=== PATIENT | female | born 1965 | race Hispanic/Latino ===

== ENCOUNTER 2016-09-24 10:22 | Observation (INO) | payer SELFPAY ==
[~2016-09-24] VITALS: Ht 147.3 cm; Wt 71.0 kg
[~2016-09-24 10:22] MED LIST: AMOXICILLIN500 MG PO; CIPRO500 MG PO; LORTAB 5 OR; LORTAB 5/3255 MG PO; LORTAB 7.57.5 MG PO; METFORMIN500 M1 PO; METFORMIN500 MG PO; NAPROSYN500 MG OR; NO; NO HOME MEDS; PAIN MED; TRAMADOL HCL50 MG PO; TRIMOX500 MG PO; ULTRAM50 M1 PO; ZOFRAN ODT4 MG PO; ZOFRAN4 MG OR; antibiotic; pain medication
[2016-09-24 11:14] LABS: HEMATOCRIT 40.3 % (37.0-47.0); HEMOGLOBIN 13.9 g/dl (12.0-16.0); IMMATURE GRANULOCYTES 0.4 % (0.0-1.0); MEAN CELL VOLUME 88.6 fL CALC (80.0-100.0); MEAN CORPUSCULAR HGB 30.5 pG CALC (26.0-32.0); MEAN CORPUSCULAR HGB CONC 34.5 g/L CALC (32.0-36.0); NEUT# 2.91 thou/uL (2.00-7.15); RED BLOOD COUNT 4.55 mill/uL (4.20-5.60); RED CELL DISTRI WIDTH 12.2 % (11.5-15.5)
[2016-09-24 11:24] LABS: ALBUMIN 4.3 g/dL (3.2-5.0); ALKALINE PHOSPHATASE 55 u/l (38-126); ANION GAP 17 (6-22 (CALC)); BILIRUBIN, TOTAL 0.4 mg/dL (0.0-1.4); BUN 15 mg/dL (7-17); BUN/CREATININE RATIO 34 (12-20 (CALC)); CALCIUM 9.2 mg/dL (8.4-10.2); CARBON DIOXIDE 21 mmol/l (22-30); CHLORIDE 105 mmol/l (95-108); CREATININE 0.5 mg/dL (0.5-1.0); GFR > 60 ML/MIN (>=60 (CALC)); GFR FOR AFR.AMER. > 60 ML/MIN (>=60 (CALC)); GLUCOSE 253 mg/dL (65-105); POTASSIUM 3.8 mmol/l (3.5-5.1); SGOT/AST 34 u/l (14-36); SGPT/ALT 57 u/l (9-52); SODIUM 140 mmol/l (137-146); TOTAL PROTEIN 7.7 g/dL (6.3-8.2)
[2016-09-24 11:36] LABS: MYOGLOBIN 22 ng/mL (0 - 62)
[2016-09-24 14:40] LABS: URINE BILIRUBIN - DIPSTICK NEGATIVE (NEGATIVE); URINE BLOOD DIPSTICK NEGATIVE (NEGATIVE); URINE CLARITY CLEAR; URINE COLOR YELLOW; URINE GLUCOSE - DIPSTICK >=1000 mg/dL (NEGATIVE); URINE KETONE TRACE mg/dL (NEGATIVE); URINE LEUK ESTERASE NEGATIVE (NEGATIVE); URINE NITRITE - DIPSTICK NEGATIVE (Negative); URINE PH 5.5 (4.5-8.0); URINE PROTEIN - DIPSTICK NEGATIVE (NEG-TRACE); URINE SPECIFIC GRAVITY 1.015; URINE UROBILINOGEN - DIPSTICK 0.2 E.U./dL (0.2)
[2016-09-24 17:24] VITALS: BP 121/77
[2016-09-24 19:25] VITALS: BP 118/60
[2016-09-25 00:05] VITALS: BP 107/74
[2016-09-25 05:00] VITALS: BP 121/82
[2016-09-25 06:51] LABS: HEMATOCRIT 37.8 % (37.0-47.0); MEAN CELL VOLUME 89.2 fL CALC (80.0-100.0); MEAN CORPUSCULAR HGB 30.7 pG CALC (26.0-32.0); MEAN CORPUSCULAR HGB CONC 34.4 g/L CALC (32.0-36.0); RED BLOOD COUNT 4.24 mill/uL (4.20-5.60); RED CELL DISTRI WIDTH 12.1 % (11.5-15.5)
[2016-09-25 07:18] LABS: ANION GAP 13 (6-22 (CALC)); BUN 11 mg/dL (7-17); BUN/CREATININE RATIO 26 (12-20 (CALC)); CALCIUM 8.5 mg/dL (8.4-10.2); CARBON DIOXIDE 22 mmol/l (22-30); CHLORIDE 109 mmol/l (95-108); CHOLESTEROL HDL RATIO 5.9 (<4.4 (CALC)); CREATININE 0.4 mg/dL (0.5-1.0); GFR > 60 ML/MIN (>=60 (CALC)); GFR FOR AFR.AMER. > 60 ML/MIN (>=60 (CALC)); GLUCOSE 129 mg/dL (65-105); HDL CHOLESTEROL 33 mg/dL (>=40); POTASSIUM 4.2 mmol/l (3.5-5.1); SODIUM 140 mmol/l (137-146); TOTAL CHOLESTEROL 197 mg/dl (0-199)
[2016-09-25 07:24] LABS: VLDL CHOLESTROL 118 mg/dl (2-49 (CALC))
[2016-09-25 07:27] LABS: TOTAL TRIGLYCERIDES 591 mg/dl (30-149)
[2016-09-25 08:24] VITALS: BP 111/70
[2016-09-25 12:15] VITALS: BP 115/73
[2016-09-25] MEDS ORDERED: ATORVASTATIN CA10 MG PO (12:40)
[2016-09-25] MEDS ORDERED: EFFEXOR XR75 MG PO (12:41)
[2016-09-25] MEDS ORDERED: ADLT ASA LOW81 MG PO (12:41)
== END 2016-09-25 13:25 | disposition home or self-care (01) | DRG 313 ==
LOC: ED 10:22 → ED-I 13:54 → ED 14:38 → MS2 14:39
PROVIDERS: Emergency Medicine; ADMIT Internal Medicine; ATTEND Internal Medicine
DX: R07.2 Precordial pain (principal); E11.9 Type 2 diabetes mellitus without complications; R06.02 Shortness of breath; N95.1 Menopausal and female climacteric states; Z79.84 Long term (current) use of oral hypoglycemic drugs
CPT/HCPCS: G0378

== ENCOUNTER 2018-01-13 02:48 | Emergency (ER) | payer SELFPAY ==
[~2018-01-13] VITALS: Ht 147.3 cm; Wt 76.0 kg
[~2018-01-13 02:48] MED LIST changes: +ADLT ASA LOW81 MG PO; +ATORVASTATIN CA10 MG PO; +EFFEXOR XR75 MG PO
[2018-01-13 03:45] LABS: HEMATOCRIT 37.2 % (37.0-47.0); HEMOGLOBIN 12.9 g/dl (12.0-16.0); IMMATURE GRANULOCYTES 0.2 % (0.0-5.0); MEAN CELL VOLUME 90.3 fL CALC (80.0-100.0); MEAN CORPUSCULAR HGB 31.3 pG CALC (26.0-32.0); MEAN CORPUSCULAR HGB CONC 34.7 g/L CALC (32.0-36.0); NEUT# 3.74 thou/uL (2.00-7.15); RED BLOOD COUNT 4.12 mill/uL (4.20-5.60)
[2018-01-13 03:45] LABS: URINE BILIRUBIN - DIPSTICK NEGATIVE (NEGATIVE); URINE BLOOD DIPSTICK NEGATIVE (NEGATIVE); URINE COLOR YELLOW; URINE GLUCOSE - DIPSTICK 500 mg/dL (NEGATIVE); URINE KETONE 15 mg/dL (NEGATIVE); URINE LEUK ESTERASE NEGATIVE (NEGATIVE); URINE NITRITE - DIPSTICK NEGATIVE (Negative); URINE PH 5.5 (4.5-8.0); URINE PROTEIN - DIPSTICK 30 mg/dL (NEG-TRACE); URINE SPECIFIC GRAVITY >=1.030; URINE UROBILINOGEN - DIPSTICK 0.2 E.U./dL (0.2)
[2018-01-13 03:46] VITALS: BP 134/79
[2018-01-13 03:46] LABS: URINE CLARITY SL CLOUDY
[2018-01-13 03:52] LABS: URINE RBC 0-2 RBC/hpf (0-5); URINE SQUAMOUS EPITHELIAL CELL MANY EPI/hpf (0-FEW)
[2018-01-13 03:55] LABS: ANION GAP 15 (6-22 (CALC)); BUN 16 mg/dL (7-17); BUN/CREATININE RATIO 32 (12-20 (CALC)); CARBON DIOXIDE 25 mmol/l (22-30); CHLORIDE 102 mmol/l (95-108); CREATININE 0.5 mg/dL (0.5-1.0); GFR FOR AFR.AMER. > 60 ML/MIN (>=60 (CALC)); POTASSIUM 3.9 mmol/l (3.5-5.1); SODIUM 138 mmol/l (137-146)
[2018-01-13 03:57] LABS: GFR > 60 ML/MIN (>=60 (CALC))
[2018-01-13] MEDS ORDERED: ROBITUSSIN AC10 ML PO (04:05)
== END 2018-01-13 06:10 | disposition home or self-care (01) | DRG 866 ==
LOC: ED 02:48
PROVIDERS: Family Medicine
DX: B34.9 Viral infection, unspecified (principal); R05 Cough; R50.9 Fever, unspecified; M79.10 Myalgia, unspecified site; E11.65 Type 2 diabetes mellitus with hyperglycemia; Z79.84 Long term (current) use of oral hypoglycemic drugs; R09.81 Nasal congestion

== ENCOUNTER 2018-07-09 15:06 | Emergency (ER) | payer SELFPAY ==
[~2018-07-09] VITALS: Ht 147.3 cm; Wt 70.0 kg
[~2018-07-09 15:06] MED LIST changes: +ROBITUSSIN AC10 ML PO
[2018-07-09] MEDS ORDERED: NOVOLIN 70/30 SC (15:27)
[2018-07-09 17:14] VITALS: BP 113/65
== END 2018-07-09 17:14 | disposition home or self-care (01) | DRG 556 ==
LOC: ED 15:06
DX: M25.572 Pain in left ankle and joints of left foot (principal); X58.XXXA Exposure to other specified factors, initial encounter; Y92.009 Unspecified place in unspecified non-institutional (private) residence as the place of occurrence of the external cause

== ENCOUNTER 2019-08-20 11:20 | Emergency (ER) | payer OTHER ==
[~2019-08-20] VITALS: Ht 147.3 cm; Wt 75.0 kg
[~2019-08-20 11:20] MED LIST changes: +NOVOLIN 70/30 SC
[2019-08-20 11:52] LABS: URINE BILIRUBIN - DIPSTICK NEGATIVE (NEGATIVE); URINE BLOOD DIPSTICK NEGATIVE (NEGATIVE); URINE COLOR YELLOW; URINE GLUCOSE - DIPSTICK NEGATIVE (NEGATIVE); URINE KETONE NEGATIVE (NEGATIVE); URINE LEUK ESTERASE NEGATIVE (NEGATIVE); URINE NITRITE - DIPSTICK NEGATIVE (Negative); URINE PROTEIN - DIPSTICK 30 mg/dL (NEG-TRACE); URINE SPECIFIC GRAVITY >=1.030; URINE UROBILINOGEN - DIPSTICK 0.2 E.U./dL (0.2)
[2019-08-20 12:02] LABS: URINE SQUAMOUS EPITHELIAL CELL FEW EPI/hpf (0-FEW)
[2019-08-20] MEDS ORDERED: ROSUVASTATIN CA40 MG PO (13:18)
[2019-08-20 13:35] VITALS: BP 118/70
== END 2019-08-20 13:35 | disposition home or self-care (01) | DRG 605 ==
LOC: ED 11:20
PROVIDERS: Student in an Organized Health Care Education/Training Program
DX: S90.32XA Contusion of left foot, initial encounter (principal); M25.562 Pain in left knee; E11.9 Type 2 diabetes mellitus without complications; V86.59XA Driver of other special all-terrain or other off-road motor vehicle injured in nontraffic accident, initial encounter; Y93.89 Activity, other specified; Y92.89 Other specified places as the place of occurrence of the external cause; Y99.0 Civilian activity done for income or pay; Z79.4 Long term (current) use of insulin

== ENCOUNTER 2020-08-04 13:02 | Emergency (ER) | payer SELFPAY ==
[~2020-08-04] VITALS: Ht 147.3 cm; Wt 74.0 kg
[~2020-08-04 13:02] MED LIST changes: +ROSUVASTATIN CA40 MG PO
[2020-08-04] MEDS ORDERED: NOVOLIN 70/30 SC ×2 (13:21)
[2020-08-04 15:47] VITALS: BP 102/70
== END 2020-08-04 15:52 | disposition home or self-care (01) | DRG 605 ==
LOC: ED 13:02
DX: S90.32XA Contusion of left foot, initial encounter (principal); E11.9 Type 2 diabetes mellitus without complications; W18.41XA Slipping, tripping and stumbling without falling due to stepping on object, initial encounter; Y92.009 Unspecified place in unspecified non-institutional (private) residence as the place of occurrence of the external cause; Z79.4 Long term (current) use of insulin

== ENCOUNTER 2021-06-24 15:32 | Emergency (ER) | payer SELFPAY ==
[~2021-06-24] VITALS: Ht 147.3 cm; Wt 70.0 kg
[2021-06-24 16:34] LABS: URINE BILIRUBIN - DIPSTICK NEGATIVE (NEGATIVE); URINE BLOOD DIPSTICK NEGATIVE (NEGATIVE); URINE COLOR YELLOW; URINE GLUCOSE - DIPSTICK 250 mg/dL (NEGATIVE); URINE KETONE 15 mg/dL (NEGATIVE); URINE LEUK ESTERASE NEGATIVE (NEGATIVE); URINE PH 5.5 (4.5-8.0); URINE PROTEIN - DIPSTICK 30 mg/dL (NEG-TRACE); URINE SPECIFIC GRAVITY >=1.030; URINE UROBILINOGEN - DIPSTICK 0.2 E.U./dL (0.2)
[2021-06-24 16:34] LABS: HEMATOCRIT 35.5 % (37.0-47.0); IMMATURE GRANULOCYTES 0.2 % (0.0-5.0); MEAN CELL VOLUME 91.7 fL CALC (80.0-100.0); MEAN CORPUSCULAR HGB CONC 33.8 g/dL CAL (32.0-36.0); NEUT# 2.74 thou/uL (2.00-7.15); RED BLOOD COUNT 3.87 mill/uL (4.20-5.60); RED CELL DISTRI WIDTH 12.4 % (11.5-15.5)
[2021-06-24 16:40] LABS: URINE NITRITE - DIPSTICK NEGATIVE (Negative)
[2021-06-24 16:41] LABS: URINE RBC 0-2 RBC/hpf (0-5); URINE SQUAMOUS EPITHELIAL CELL RARE EPI/hpf (0-FEW); URINE WBC 0-2 WBC/hpf (0-5)
[2021-06-24 16:51] LABS: INTERNATIONAL NORMALIZED RATIO 0.9 RATIO (0.7-1.3); PROTHROMBIN TIME 9.7 SECONDS (9.0-12.5)
[2021-06-24 16:52] LABS: ALBUMIN 3.9 g/dL (3.2-5.0); ALKALINE PHOSPHATASE 54 u/l (38-126); ANION GAP 17 (6-22 (CALC)); BUN 20 mg/dL (7-17); BUN/CREATININE RATIO 36 (12-20 (CALC)); CARBON DIOXIDE 20 mmol/l (22-30); CHLORIDE 108 mmol/l (95-108); CPK 111 u/l (30-165); CREATININE 0.5 mg/dL (0.5-1.0); GFR > 60 ML/MIN (>=60 (CALC)); GFR FOR AFR.AMER. > 60 ML/MIN (>=60 (CALC)); POTASSIUM 4.1 mmol/l (3.5-5.1); SGOT/AST 37 u/l (14-36); SODIUM 141 mmol/l (137-146); TOTAL PROTEIN 7.3 g/dL (6.3-8.2)
[2021-06-24 16:57] LABS: BILIRUBIN, TOTAL 0.2 mg/dL (0.0-1.4)
[2021-06-24 17:03] LABS: MYOGLOBIN 49 ng/mL (0 - 62)
[2021-06-24] MEDS ORDERED: ENALAPRIL5 MG PO (19:29)
[2021-06-24] MEDS ORDERED: METFORMIN500 M2 PO (19:30)
[2021-06-24] MEDS ORDERED: TAMSULOSIN HCL0.4 MG PO (19:32)
[2021-06-24 19:35] VITALS: BP 130/70
== END 2021-06-24 19:53 | disposition home or self-care (01) | DRG 641 ==
LOC: ED 15:32
PROVIDERS: Nurse Practitioner
DX: E86.0 Dehydration (principal); E11.9 Type 2 diabetes mellitus without complications; X58.XXXA Exposure to other specified factors, initial encounter; Y92.63 Factory as the place of occurrence of the external cause; Y99.0 Civilian activity done for income or pay; Z79.84 Long term (current) use of oral hypoglycemic drugs